=== PATIENT | male | born 1970 | race Caucasian/White ===

== ENCOUNTER 2019-04-26 00:02 | Emergency (ER) | payer SELFPAY ==
[2019-04-26 00:03] VITALS: BP 151/87; PULSE 102; RESP 15; TEMP 36.8; O2SAT 97; BMI 35.9
--- NOTE | 2019-04-26 00:31 | ED.VISSUMM ---
- ER Visit Summary Date of Service: 04/26/19 Chief Complaint: Right lower leg cellulitis and possible abscess History of Present Illness: The patient is a 48 M known diabetic with coronary disease, prior [place] and cardiac stent with a history of A. fib. Patient currently is not taking his medications. His blood sugars been running high. He scratches his legs a lot because they itch he breaks down the skin and they get infected. States the pain and redness to his right lower extremity last several days. Denies any fever or chills. Currently has no primary care physician. Physical Examination: Middle-aged male no acute distress. Vital signs stable afebrile. H EENT exam unremarkable neck nontender lungs clear to auscultation bilaterally. Heart regular rhythm rate about 95 no murmur. Chest wall nontender. Abdomen soft nontender. Extremities moves all 4. Neurovascular intact. Lower extremities have breakdown of skin from scratching or picking. He has a small abscess about the size of a dime on the anterior mid olivares on the right. It is tender. Early cellulitis. Neurologically is awake and alert with no focal deficits. Test Results: BG T equals 449 patient was offered but refused medication Emergency Department Course and Treatment: Patient be started on p.o. Keflex. Topical lidocaine and incision was made over the right mid lower leg abscess. There was no pus. Treatment Plan: Keflex 500 4 times daily for 10 days. I will rewrite for his diabetic meds and his Xarelto. He will need to follow-up with the [facility] clinic. Patient was instructed he needs to start taking better care of himself and his diabetes. He was offered a [employer] home pack which he refused. ABG T with obtained prior to discharge it was 449. He was going to be given a insulin injection which he refused and said they would do at home. Patient made inappropriate comments and they left without any other prescriptions. Patient is extremely noncompliant. Disposition: Discharge Impression: Right lower lower extremity cellulitis and early abscess Incision and drainage by ER Diabetes poorly controlled due to medical noncompliance Out of multiple medications Noncompliant with his anticoagulation not taking his Xarelto History of CAD, [place], cardiac stent with A. fib off his current anticoagulation This note was generated with [employer] dictation software. It may contain incorrect words, spelling, and punctuation that were not noted in review of the chart prior to signing ED Disposition - Plan for ED Patient: Disposition: Home or Assisted Living Instructions: ED Abscess IandD Prescriptions: Cephalexin [Keflex] 500 mg PO Q6 #40 cap Insulin Glargine,Hum.rec.anlog [Basaglar Kwikpen U-100] 100 unit SQ DAILY #50 insuln.pen Insulin Aspart [Novolog Flexpen (BKC)] 50 units SC BIDCM 14 Days flexpen Insulin Aspart [Novolog Flexpen (BKC)] 40 units SUBCUT BIDCM 14 Days flexpen Rivaroxaban [Xarelto] 15 mg PO BID #42 tab Referrals: Gail Rich [NON-STAFF] - As soon as possible Additional Instructions: Absolutely need to get all your meds refilled. You need to follow-up of I will start since clinic. You absolutely need to be diabetes this only get a lot worse. Keflex 1 pill 4 times a day. Restart your Xarelto you will need another prescription after the first 3 weeks. Restart your insulin. Sliding scale on the NovoLog. Watch your blood sugars closely. Absolutely stop smoking.
--- NOTE | 2019-04-26 00:34 | ED.DCSUM_ITS ---
- ER Visit Summary Date of Service: 04/26/19 Chief Complaint: Right lower leg cellulitis and possible abscess History of Present Illness: The patient is a 48 M known diabetic with coronary disease, prior [place] and cardiac stent with a history of A. fib. Patient currently is not taking his medications. His blood sugars been running high. He scratches his legs a lot because they itch he breaks down the skin and they get infected. States the pain and redness to his right lower extremity last several days. Denies any fever or chills. Currently has no primary care physician. Physical Examination: Middle-aged male no acute distress. Vital signs stable afebrile. H EENT exam unremarkable neck nontender lungs clear to auscultation bilaterally. Heart regular rhythm rate about 95 no murmur. Chest wall nontender. Abdomen soft nontender. Extremities moves all 4. Neurovascular intact. Lower extremities have breakdown of skin from scratching or picking. He has a small abscess about the size of a dime on the anterior mid olivares on the right. It is tender. Early cellulitis. Neurologically is awake and alert with no focal deficits. Test Results: BG T equals 449 patient was offered but refused medication Emergency Department Course and Treatment: Patient be started on p.o. Keflex. Topical lidocaine and incision was made over the right mid lower leg abscess. There was no pus. Treatment Plan: Keflex 500 4 times daily for 10 days. I will rewrite for his diabetic meds and his Xarelto. He will need to follow-up with the [facility] clinic. Patient was instructed he needs to start taking better care of himself and his diabetes. He was offered a [employer] home pack which he refused. ABG T with obtained prior to discharge it was 449. He was going to be given a insulin injection which he refused and said they would do at home. Patient made inappropriate comments and they left without any other prescriptions. Patient is extremely noncompliant. Disposition: Discharge Impression: Right lower lower extremity cellulitis and early abscess Incision and drainage by ER Diabetes poorly controlled due to medical noncompliance Out of multiple medications Noncompliant with his anticoagulation not taking his Xarelto History of CAD, [place], cardiac stent with A. fib off his current anticoagulation This note was generated with [employer] dictation software. It may contain incorrect words, spelling, and punctuation that were not noted in review of the chart prior to signing ED Disposition - Plan for ED Patient: Disposition: Home or Assisted Living Instructions: ED Abscess IandD Prescriptions: Cephalexin [Keflex] 500 mg PO Q6 #40 cap Insulin Glargine,Hum.rec.anlog [Basaglar Kwikpen U-100] 100 unit SQ DAILY #50 insuln.pen Insulin Aspart [Novolog Flexpen (BKC)] 50 units SC BIDCM 14 Days flexpen Insulin Aspart [Novolog Flexpen (BKC)] 40 units SUBCUT BIDCM 14 Days flexpen Rivaroxaban [Xarelto] 15 mg PO BID #42 tab Referrals: Gail Rich [NON-STAFF] - As soon as possible Additional Instructions: Absolutely need to get all your meds refilled. You need to follow-up of I will start since clinic. You absolutely need to be diabetes this only get a lot worse. Keflex 1 pill 4 times a day. Restart your Xarelto you will need another prescription after the first 3 weeks. Restart your insulin. Sliding scale on the NovoLog. Watch your blood sugars closely. Absolutely stop smoking.
[2019-04-26] MEDS: Cephalexin 250 MG Capsule 500 MG PO (00:37)
[2019-04-26] MEDS: Lidocaine/Epi/Tetracaine 50 ML 1 APPLIC TOPICAL (00:38)
--- NOTE | 2019-04-26 00:42 | DCINST.ED_ITS ---
ED Disposition - Plan for ED Patient: Disposition: Home or Assisted Living Instructions: ED Abscess IandD Prescriptions: Cephalexin [Keflex] 500 mg PO Q6 #40 cap Insulin Glargine,Hum.rec.anlog [Basaglar Kwikpen U-100] 100 unit SQ DAILY #50 insuln.pen Insulin Aspart [Novolog Flexpen (BKC)] 50 units SC BIDCM 14 Days flexpen Insulin Aspart [Novolog Flexpen (BKC)] 40 units SUBCUT BIDCM 14 Days flexpen Rivaroxaban [Xarelto] 15 mg PO BID #42 tab Referrals: Gail Rich [NON-STAFF] - As soon as possible Additional Instructions: Absolutely need to get all your meds refilled. You need to follow-up of I will start since clinic. You absolutely need to be diabetes this only get a lot worse. Keflex 1 pill 4 times a day. Restart your Xarelto you will need another prescription after the first 3 weeks. Restart your insulin. Sliding scale on the NovoLog. Watch your blood sugars closely. Absolutely stop smoking.
[2019-04-26 01:45] LABS: Bedside Glucose 449 mg/dL (70-110)
--- NOTE | 2019-04-26 01:58 | ED.RN ---
PT CAME TO THE NURSE'S STATION YELLING AT THE STAFF. PT STATES YOU BETTER KEEP THAT DOCTOR AWAY FROM HIM. I DO NOT KNOW WHAT HE IS GOING TO DO TO THE DOCTOR. THIS NURSE INFORMED THAT PT AND IT IS NOT APPROPRIATE TO THREATEN THE DOCTOR OR THE STAFF. PT STATES I DON'T WANT FUCKING ANYTHING FROM YOU. JUST WRAP MY FUCKING LEG SO I CAN LEAVE. THIS NURSE ASKED THE PT IF HE WANTED HIS PAIN MEDICATION OR PRESCRIPTIONS. PT STATES I DON'T WANT FUCKING ANYTHING FROM YOU. WRAP THE FUCKING THING SO I CAN LEAVE. BACITRACIN APPLIED TO THE WOUND, 4X4 PLACED OVER THE WOUND AND WRAPPED WITH KERLEX. PT REFUSED TO ALLOW THIS NURSE TO UPDATE VITAL SIGNS. PT AMBULATES FROM ROOM WITHOUT ASSISTANCE FROM STAFF.
== END 2019-04-26 02:05 | disposition home or self-care (01) ==
PROVIDERS: Emergency Provider Emergency Medicine
DX: L03.115 Cellulitis of right lower limb (principal); L02.415 Cutaneous abscess of right lower limb; E11.9 Type 2 diabetes mellitus without complications; I25.10 Atherosclerotic heart disease of native coronary artery without angina pectoris; I25.2 Old myocardial infarction; I48.91 Unspecified atrial fibrillation; Z95.5 Presence of coronary angioplasty implant and graft; Z79.01 Long term (current) use of anticoagulants; Z79.4 Long term (current) use of insulin; Z91.14 Patient's other noncompliance with medication regimen; Z72.0 Tobacco use
CPT/HCPCS: 10060; 82962; 99283

== ENCOUNTER 2025-10-12 13:34 | Outpatient (RCR) | payer MEDICAID, SELFPAY ==
[2025-10-12 13:44] VITALS: BP 112/72; PULSE 78; RESP 16; TEMP 35.9; BMI 26.5
--- NOTE | 2025-10-13 09:30 | WC ---
PHOTO-RIGHT HALLUX 10/12/25
--- NOTE | 2025-10-14 22:57 | HP.PCM_ITS ---
History of Present Illness Date of Service: 10/12/25 Chief Complaint: Right foot pain History of Wound: History of hematoma for the past few weeks after self cutting of nails on the right great toe Progress of Wound: Patient is a 55-year-old diabetic male presenting to the wound care center today for follow-up and evaluation with a chief complaint of right toe pain. Patient was cutting back his toenails and suffered a hematoma where he was bleeding and presented to his primary doctor for concerns of infection. He was placed on oral antibiotics, doxycycline milligrams twice daily which she is almost finished. His blood sugars have been well-controlled. He was referred to the wound center for evaluation and treatment. He denies trauma. Except from trimming his own nail. He denies constitutional symptoms. No other pedal complaints at this time. [facility] Home Medications ?Medication ?Instructions ?Recorded ?Last Taken ?Type cephalexin 500 mg capsule 500 mg PO Q6 #40 caps Unknown Rx insulin glargine 100 unit/mL (3 100 unit SQ DAILY ##50 04/26/19 Unknown Rx mL) subcutaneous pen rivaroxaban 15 mg tablet 15 mg PO BID #42 tabs Unknown Rx aspirin 81 mg tablet,delayed 81 mg PO DAILY 10/12/25 U nknown History release atorvastatin 80 mg tablet 80 mg PO DAILY 10/12/25 Unkn own History benzonatate 100 mg capsule 100 - 200 mg PO TID PRN PRN cough 10/12/25 Unknown History blood sugar diagnostic (Accu-Chek 10/12/25 Unknown Dc story Guide test strips) blood-glucose sensor (FreeStyle 10/12/25 Unknown [facility] Niharika 3 Plus Sensor device) cetirizine 10 mg tablet 10 mg PO DAILY 10/12/25 Unkn own History citalopram 20 mg tablet 20 mg PO DAILY 10/12/25 Unkn own History cyclobenzaprine 10 mg tablet 10 mg PO TID PRN PRN musc le spasm 10/12/25 Unknown History doxycycline monohydrate 100 mg 100 mg PO BID 10/12/25 Unknown History capsule dulaglutide 0.75 mg/0.5 mL 0.75 mg subcut QWEEK Unknown History subcutaneous [facility] ([facility]) fluticasone propionate 50 1 spray intranasal DAILY PRN nasal 10/12/25 10/12/25 History mcg/actuation nasal congestion spray,suspension gabapentin 100 mg capsule mg PO 10/12/25 Unknown Histo ry hydroxyzine pamoate 25 mg capsule 25 mg PO TID PRN PRN itching 10/12/25 10/12/25 History insulin aspart U-100 100 unit/mL 45 unit subcut BID Unknown History (3 mL) subcutaneous pen insulin lispro 100 unit/mL 10/12/25 Unknown History subcutaneous solution (Humalog U-100 Insulin) lancets (Accu-Chek Softclix 10/12/25 Unknown History Lancets) meloxicam 15 mg tablet 15 mg PO DAILY 10/12/25 Unkn own History meloxicam 7.5 mg tablet 7.5 mg PO DAILY PRN pain 11/24 Unknown History nitroglycerin 0.3 mg sublingual mg sublingual 10/12/25 Unknown History tablet nitroglycerin 0.4 mg sublingual mg sublingual 10/12/25 Unknown History tablet tamsulosin 0.4 mg capsule 0.4 mg PO DAILY 10/12/25 Unk nown History Allergy/AdvReac Type Severity Reaction Status Date / Time codeine Allergy Vomiting Verified 04/26/19 00:08 Social History Smoking Status: Current every day smoker Vital Signs Vital Signs Vital Signs: Weight Weight: 83.915 kg Body Mass Index (BMI) 26.5 Physical Exam Narrative Vascular: DP and PT pulses palpable. CFT brisk. No erythema or proximal streaking. Skin temperature is warm to warm with no focal increase. Neurologic: Light touch is intact. Protective station is diminished Dermatologic: No open lesion or abrasions. No subcutaneous nodules notes. No erythema. Evidence of hematoma appreciated to the nail plate of the right great toe. No concern for infection. Musculoskeletal: Muscle strength is 5/5 in all quadrants. No pain to palpation right hallux. No pain with calf pressure. Assessment/Plan Assessment/Plan (1) Contusion of right great toe with damage to nail: CODE(S): S90.211A - Contusion of right great toe with damage to nail, initial encounter QUALIFIERS: Encounter type: initial encounter Qualified Code(s): S90.211A - Contusion of right great toe with damage to nail, initial encounter PLAN: Patient was examined and evaluated. All findings were discussed with the patient. All questions were answered to the patient satisfaction. After exam the patient was evidence of a stable hematoma to the nail plate of the right great toe. There was no drainage or concern for infection at this time. I educated the patient that this can be followed up at the private office level and the patient will be discharged from the wound care center today. No needed for any treatment regarding the hematoma. He does not need to apply anything to the nailbed. Patient is continue strict blood sugar control. Patient will finish all antibiotics as prescribed by primary doctor until gone. She will follow-up in private office
== END 2025-10-13 09:09 | disposition home or self-care (01) ==
LOC: WC 13:34
PROVIDERS: Visit Provider Podiatrist Foot & Ankle Surgery
DX: S90.211A Contusion of right great toe with damage to nail, initial encounter (principal); F17.200 Nicotine dependence, unspecified, uncomplicated; W26.8XXA Contact with other sharp object(s), not elsewhere classified, initial encounter; Y93.E8 Activity, other personal hygiene
CPT/HCPCS: 99213; G0463